=== PATIENT | female | born 1935 | race Caucasian/White ===

== ENCOUNTER 2022-08-01 11:12 | Emergency (ER) | payer OTHER ==
[~2022-08-01] VITALS: Ht 157.5 cm; Wt 54.4 kg
[2022-08-01 11:23] VITALS: BP 141/76
--- NOTE | 2022-08-01 11:30 | NUR ---
87/F WHEELCHAIR ASSISTED C/O LOW BACK PAIN RADIATING TO LEFT LEG ACCOMPANIED BY LEFT LEG NUMBNESS. PT REPORTS ONSET 06/2022 AND WAS SEEN AT URGENT CARE BUT WAS ADVISED TO VISIT ED PAIN IS NOT UNDER CONTROL. PT REPORTS CONSTANT PAIN. PT REPORTS TAKING TYLENOL 500 MG X3 TODAY WITH NO RELIEF. DENIES ANY RECENT FALL OR INJURY. AAO4 PMH: DENIES MEDS: ELIQUIS BID
[2022-08-01] MEDS ORDERED: MORPHINE SULFATE 4 MG/ML SYR IM ONE (11:35)
[2022-08-01 13:06] LABS: APPEARANCE,URINE CLEAR (CLEAR); BILIRUBIN,URINE NEGATIVE (NEGATIVE); BLOOD, URINE MODERATE (NEGATIVE); COLOR,URINE YELLOW (YELLOW); LEUKOCYTE ESTERASE ,URINE SMALL (NEGATIVE); NITRITE, URINE NEGATIVE (NEGATIVE); UGLUCOSE NEGATIVE (NEGATIVE)
[2022-08-01] MEDS ORDERED: LID5T TP (13:19)
[2022-08-01] MEDS ORDERED: PRED20TA5 PO (13:19)
[2022-08-01] MEDS ORDERED: ACET-5629 PO (13:19)
[2022-08-01] MEDS ORDERED: CEPH500C16 PO (13:35)
--- NOTE | 2022-08-01 13:41 | NUR ---
Patient discharged with v/s stable. Written and verbal after care instructions given. Patient alert, oriented and verbalized understanding of instructions. Ambulatory with steady gait. All questions addressed prior to discharge. ID band removed. Patient advised to follow up with PMD. Rx of Percocet 5-325 mg tablet, Keflex, Lidocaine and Deltasone given. Opportunity to ask questions provided and answered.
--- NOTE | 2022-08-01 13:42 | NUR ---
The patient's care was reviewed and supervised by Merlene Gates, RN, RN.
== END 2022-08-01 13:41 | disposition home or self-care (01) ==
LOC: MED 11:12
DX: M54.42 Lumbago with sciatica, left side (principal); N39.0 Urinary tract infection, site not specified; Z79.899 Other long term (current) drug therapy
CPT/HCPCS: 72131; 81001; 87086; 96372; 99285; J2270; 99283